=== PATIENT | male | born 1965 | race Caucasian/White ===

== ENCOUNTER → 2018-01-11 08:01 | Outpatient (REF) | payer OTHER, SELFPAY ==
[2018-01-11 12:09] LABS: Abs Immature Grans 0.06 k/cumm (0.0-0.09); HGB 14.8 g/dL (13.5-17.5); Mean Corp. HGB Concentration 35.2 g/dL (32.0-36.0); Mean Corpuscular Hemoglobin 33.3 pg (27.0-33.0); Mean Corpuscular Volume 94.4 fL (80-95); Mean Platelet Volume 9.8 fL (8.0-11.0); Platelet Count 314 x1000/uL (130-400); RBC 4.45 m/cumm (4.50-6.00); RBC Distribution Width 11.7 % (11.8-14.1)
[2018-01-11 12:33] LABS: White Blood Cell Count 28.71 k/cumm (4.4-10.8)
[2018-01-11 12:34] LABS: Absolute Lymphocyte Count 21.25 k/cumm (1.2-3.4); Absolute Monocyte Count 0.86 k/cumm (0.11-0.7); Absolute Neutrophil Count 6.32 k/cumm (1.2-6.7); Atypical Lymphocytes % 0; Diff Comment Manual Differential; RBC Morphology Normal
[2018-01-11 12:46] LABS: ALT 37 U/L (12-78); AST 40 U/L (15-37); Albumin 4.3 g/dL (3.4-5.0); Alkaline Phosphatase 75 U/L (46-116); Anion Gap 11.4 mmol/L (3-11); BUN 12 mg/dL (7-18); Bilirubin, Total 1.2 mg/dL (0.2-1.0); CO2 25.6 mmol/L (21.0-32.0); Calcium 9.1 mg/dL (8.5-10.1); Chloride 94 mmol/L (98-107); Cholesterol 234 mg/dL (50-200); Ferritin 162 ng/mL (8-388); Glucose 85 mg/dL (70-100); HDL Cholesterol 102 mg/dL (40-60); LDL CHOLESTEROL 120 mg/dL (<100); Potassium 4.1 mmol/L (3.5-5.1); Sodium 131 mmol/L (136-145); Total Protein 7.4 g/dL (6.4-8.2); Triglyceride 61 mg/dL (30-150)
[2018-01-11 14:03] LABS: Absolute Eosinophil Count 0.29 k/cumm (0.0-0.7)
[2018-01-14 10:00] LABS: Hepatitis C Ab w Rflx HCV PCR Negative (NEGAT)
[2018-01-14 10:08] LABS: Hepatitis B Surface Ag Negative (NEGAT)
== END ==
LOC: NCHCN 08:01
PROVIDERS: PCP Family Medicine; Visit Provider Family Medicine
DX: Z00.00 Encounter for general adult medical examination without abnormal findings (principal); C91.00 Acute lymphoblastic leukemia not having achieved remission; R74.0 Nonspecific elevation of levels of transaminase and lactic acid dehydrogenase [LDH]; I10 Essential (primary) hypertension; Z13.220 Encounter for screening for lipoid disorders; Z11.59 Encounter for screening for other viral diseases
CPT/HCPCS: 80053; 80061; 83721; 86803; 87340; 82728; 85025

== ENCOUNTER 2018-09-23 10:04 | Day surgery (SDC) | payer OTHER, SELFPAY ==
--- NOTE | 2018-09-23 07:06 | COLE_ITS ---
Date of service: 09/23/18 Time of Service: 10:55 Colonoscopy Report Date of procedure: 09/23/18 Pre-op diagnosis general: Screening Colonoscopy Post-op diagnosis procedure note: other (rectal polyps and mild diverticulosis) Procedure: Colonoscopy with polypectomy with cold forceps Surgeon: Stephanie Longoria Anesthesia proc note operative: other (General/ ASA 2 / Gustavo Ventura, MARTINA) Estimated blood loss (mL): 3 Pathology: other (rectal polyps x2) Complications: None Disposition: same day Indications: Mr. Prabhakar is a pleasant 53 year old male seen in the office for a screening colonoscopy. Risks, benefits and complications have been reviewed. Complications include but are not limited to bleeding, pain, perforation, missed small lesion/polyp, sore throat, aspiration and adverse reaction to the medications. Questions were entertained and answered to their satisfaction and they wished to proceed. No guarantees were given or implied. Prep: Miralax/Dulcolax Procedure Start Time: 10:55 Procedure End Time: 11:28 Retraction Time: 19 minutes Findings: 2 small pedunculated polyps in the rectum Mild diverticulosis of the descending and sigmoid colon Procedure Description: After informed consent was obtained the patient was taken to the procedure room and placed in a left decubitous position. Monitors were applied and a time out was done. The patients name, date of , procedure, allergies to medications and metal in their body was reviewed. The patient was then sedated. Once sedated and comfortable a rectal exam was done. External exam was normal. Internal exam revealed a normal sphincter tone and no palpable m asses. The prostate felt smooth. The scope was then introduced and retro-flexed. No internal hemorrhoids were identified. There were no masses in the rectum. 2 polyps were identified and removed with cold forceps. The scope was then advanced to the cecum without difficulty. The TI and appendiceal orifice were identified. The prep was adequate. The scope was then slowly retracted over 19 minutes back into the rectum. Except for the 2 rectal polyps removed on the way in to the cecum, there were no other polyps identified. There was mild diverticulosis noted of the descending and sigmoid colon. The scope was removed and the patient was woken up and taken back to Same day surgery in stable condition. The patient tolerated the procedure well and there were no immediate complications. Follow up: The patient should follow up in 3-5 years unless they develop changes in bowel habits or other new gastrointestinal complaints.
--- NOTE | 2018-09-23 07:06 | W.PM.DSUDISC ---
Discharge Plan Disposition Patient Disposition: HOME Condition: Good Discharge Details Reason For Visit: Colon Cancer Screening Attending Provider: Stephanie Longoria Primary Care Provider: Pio Harris Home Meds and New Rx's Prescriptions: Continued lisinopril 20 MG tablet 30 mg PO DAILY RF: 0 lisinopril-hydrochlorothiazide 10-12.5 mg Tablet 1 tab PO DAILY RF: 0 Discontinued polyethylene glycol 3350 17 gram/dose powder 238 g PO ONCE Qty: 238 RF: 0 bisacodyl [Dulcolax (bisacodyl)] 5 mg tablet,delayed release (DR/EC) 5 mg PO ONCE Qty: 4 RF: 0 Discharge Instructions Instructions: Colonoscopy (DC), Diverticulosis (DC), Colorectal Polyps (DC) Additional Instructions: Findings: 2 small polyps mild diverticulosis of descending and sigmoid colon Follow up: 3-5 years Please call if you develop: fevers >101.5 Nausea or Vomiting Abdominal pain that is not transient DAY SURGERY UNIT POST COLONOSCOPY INSTRUCTIONS 1. Because there will be medication in your system for the next 24 hours, you may feel a little sleepy. Your coordination will be affected. Therefore: a. Do not drive or operate dangerous equipment for 24 hours. b. Do not drink alcohol beverages for 24 hours (not even beer). c. Plan to go home and rest for the day. 2. Generally there are no restrictions on your activity after a day or so has gone by, but you may feel a bit fatigued for a few days. 3 After you arrive home you may have a light meal and return to a normal diet as you can tolerate it without feeling sick to your stomach. 4. After surgery, you may feel pain or discomfort. This should be only transient, but if it persists please contact your doctor. 5. If there are any questions regarding the findings of your procedure, please feel free to contact your doctor. 6. If you are unable to contact your doctor with a problem, contact the hospital at [phone]. 7. Continue all your regular medications unless directed otherwise. I understand the above instructions and have no questions. Signature of Patient or Responsible Adult Escort Date/Time Name of Responsible Adult Escort Signature of Nurse Date/Time Activity:: Activity as Tolerated Diet:: high fiber diet Discharge Orders Discharge Orders: Discharge Order (Routine); Ordered 09/23/18 Ordered By: Stephanie Longoria DS: Diagnosis Discharge Diagnosis (1) S/P colonoscopy: Status: Acute (2) Diverticulosis large intestine w/o perforation or abscess w/o bleeding: Status: Acute (3) Rectal polyp: Status: Acute
[2018-09-23 10:26] VITALS: BP 144/106; PULSE 69; RESP 16; TEMP 36.5; O2SAT 96
[2018-09-23 10:29] VITALS: BP 144/106; PULSE 69; RESP 16; TEMP 36.5; O2SAT 96
[2018-09-23 10:31] VITALS: BP 144/106; PULSE 69; RESP 16; TEMP 36.5; O2SAT 96
[2018-09-23] MEDS: Lactated Ringers 1,000 ML 80 ML IV (10:40)
--- NOTE | 2018-09-23 10:56 | BOWEL_PTH ---
PATIENT: Gustavo Prabhakar LOC: [facility] U#:[id number] AGE/SX: 53/M ROOM: RE09/23/[address]: Stephanie Longoria MD : 1965 BED: DIS: 09/23/2018 SPEC #: [id number] RECD: 09/23/18 12:48 STATUS: JUWAN REQ #: [id number] GA: 09/23/18 10:[address]: Stephanie Longoria DEPT: Surgical Specimen RECD BY: Mitzi Lopez ENTERED: 09/23/18 12:49 SP TYPE: Bowel OTHR DR: Pio Harris Tissues: 1 - BIOPSY BOWEL Procedures: GROSS AND MICRO LEVEL 4 Comments: [id number]
[2018-09-23 11:53] VITALS: BP 140/99; PULSE 55; RESP 16; TEMP 35.8; O2SAT 99
[2018-09-23 12:09] VITALS: BP 142/103; PULSE 60; RESP 16; O2SAT 100
== END 2018-09-23 12:22 | disposition home or self-care (01) ==
LOC: SUR 10:04
PROVIDERS: PCP Family Medicine; Visit Provider Surgery
PROC: 0DJD8ZZ Inspection of Lower Intestinal Tract, Via Natural or Artificial Opening Endoscopic (ICD-10-PCS; CPT 45378; principal; 2018-09-23 10:15)
DX: Z12.11 Encounter for screening for malignant neoplasm of colon (principal); D12.8 Benign neoplasm of rectum; K57.30 Diverticulosis of large intestine without perforation or abscess without bleeding; I10 Essential (primary) hypertension
CPT/HCPCS: 45380; 88305

== ENCOUNTER 2020-08-11 10:29 | Emergency (ER) | payer OTHER, SELFPAY ==
--- NOTE | 2020-08-11 10:30 | W.ED.GENAD ---
Discharge Plan Disposition Patient Disposition: HOME Condition: Stable Discharge Details Clinical Impression: Laceration of leg Primary Care Provider: Pio Harris ED Provider: Sammy Gallagher Home Meds and New Rx's Prescriptions: Continued lisinopril-hydrochlorothiazide 10-12.5 mg Tablet 1 tab PO DAILY RF: 0 Discharge Instructions Instructions: Laceration (ED) Additional Instructions: Laceration repaired without any difficulty. Keep the area clean and dry, change antibiotic dressing daily. Sutures removed in the next 7-10 days, please return to the ER or follow-up with your primary care provider. At this time you have declined a tetanus booster, please discuss updating your tetanus with your primary care provider. Watch for new or worsening symptoms and return to the ER for any concerns. Medical Decision Making 55-year-old gentleman presents with right lower leg injury that occurred just prior to arrival. There was no hole in his pants, no splintering of the wood, no chance of foreign body. Neuro, vascular, tendon intact. Patient appears well, nontoxic. The patient reports reaction to the influenza vaccine, declines tetanus booster today. Pros and cons of this decision discussed with patient, he is aware, continues to decline, after he received the Covid vaccine in 2 weeks he plans to talk with his primary care provider about getting the tetanus booster. Will not obtain x-ray as extremely low suspicion for foreign body. Laceration repaired without difficulty. Patient has no additional questions or concerns and is comfortable discharge. Antibiotic dressing applied prior to discharge. Medical Records Medical records reviewed: Yes I reviewed the patient's medical records. HPI General Mode of arrival: ambulatory. Date/Time Provider Initiated Documentation: 08/11/20 10:30. Limitations to Documentation: no limitations. Information obtained by: patient. HPI Narrative: This is a 55-year-old gentleman, presenting to to the ER for evaluation of a right lower leg injury. He reports at work, just prior to arrival, he slipped on ice striking his right leg on the corner of a wooden palate. He was wearing pants and there was no tear in his pants. Reports minimal discomfort, slightly worse with movement or walking. Denies any other injury, numbness, tingling, weakness. Patient states an adverse reaction to the flu vaccine in the past, is declining to have his tetanus updated today. He will discuss this with his primary care provider. Patient without any additional questions or concerns. Related Data Home Medications Medication Instructions Recorded Confirmed lisinopril-hydrochlorothiazide 1 tab PO DAILY 09/23/18 08/11/20 Allergies Allergy/AdvReac Type Severity Reaction Status Date / Time Influenza Virus Vaccines Allergy Severe Verified 08/11/20 10:39 Review of Systems Constitutional Constitutional: Denies weakness Musculoskeletal Musculoskeletal: Denies arthralgias, Denies numbness and Denies tingling Integumentary/Breasts Skin/Breast: Denies rash Neurologic Neurologic: Denies numbness, Denies tingling and Denies weakness [facility] Medical History 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 Diverticulosis large intestine w/o perforation or abscess w/o bleeding (~09/23/18) Hypertension Rectal polyp (~09/23/18) Surgical History History of incision and drainage Right forearm/hand S/P colonoscopy (~09/23/18) Social History Smoking/Tobacco Use Status: Former Tobacco Use Quit Date: 06/04/79 Smoking risk assessment performed?: Yes Alcohol Intake: current Alcohol Intake frequency: a few times a week Alcohol type: beer Drug use: Never Do you feel safe at home: Yes Do you feel safe in your relationship?: Yes Additional Social history: alcohol: T-2, three beers Exam Const General: cooperative, healthy appearing, comfortable and no acute distress Orientation: alert and awake [facility] Head: normal to inspection, normocephalic and atraumatic Eyes General: appearance normal, both eyes and all related structures Conjunctivae: conjunctivae normal Sclera: sclerae normal Neck Neck: normal visual inspection, trachea midline and supple Resp Effort & Inspection: normal respiratory effort and able to speak in complete sentences Cardio Rate: regular rate Rhythm: regular rhythm Skin General skin exam: no rashes or lesions noted Neuro General: patient alert, patient awake, moves all extremities and no focal motor deficits Cognition: normal cognition Speech: speech normal Gait: normal gait Motor: muscle tone normal throughout Sensory Exam: no sensory deficits noted Extrem General: full ROM and capillary refill normal Ankle/foot/toe images: 1. There is an irregular 2.5 cm laceration with adjacent abrasion. There is no obvious foreign body. No active bleeding. Neuro, vascular, tendon intact. Full range of motion. Normal capillary refill. Minimal discomfort to palpation. Psych Appearance: grossly normal Mental Status: mental status grossly normal Procedures Laceration Laceration 1: Site: lower extremity Side (If applicable): right Size (cm): 2.5 Description: irregular and clean Depth: simple, single layer Local Anesthetic: Lidocaine 1% and with Epi Amount of anesthesia used (mL): 4 Pre-repair: wound explored, irrigated extensively and deep structures intact Skin layer closed with: nylon Size (cm): 4-0 Number of sutures: 4 Technique: simple, interrupted Other Description: Procedure performed by JUSTINE Curtis under my direct supervision.
[2020-08-11 10:33] VITALS: BP 161/90; PULSE 96; RESP 16; TEMP 36.5; O2SAT 96
[2020-08-11] MEDS: Bacitracin 1 PACKET (11:40)
== END 2020-08-11 11:47 | disposition home or self-care (01) ==
PROVIDERS: Emergency Provider Physician Assistant; PCP Family Medicine
DX: S81.811A Laceration without foreign body, right lower leg, initial encounter (principal); W00.0XXA Fall on same level due to ice and snow, initial encounter; W22.8XXA Striking against or struck by other objects, initial encounter; Y99.0 Civilian activity done for income or pay
CPT/HCPCS: 12001

== ENCOUNTER 2021-04-18 13:24 | Outpatient (REF) | payer OTHER, SELFPAY ==
[2021-04-18 19:43] LABS: Abs Immature Grans 0.08 10^3/uL (0.0-0.06); Basophils % 0.1; Eosinophils % 0.2; HCT 43.5 % (40.0-50.0); HGB 14.7 g/dL (13.5-17.5); Immature Grans % 0.2; Lymphocytes % 83.9; MCHC 33.8 % (32.0-36.0); MCV 94.6 fL (80-95); Monocytes % 1.7; Neutrophils % 13.9; Nucleated RBC 0 %; Platelet Count 335 10^3/uL (130-400); RDW 11.9 % (11.8-14.1); RDW-SD 41.1 fL
[2021-04-18 19:58] LABS: ALT 36 U/L (16-63); AST 30 U/L (15-37); Albumin 4.2 g/dL (3.4-5.0); Alkaline Phosphatase 77 U/L (46-116); Anion Gap 13.3 mmol/L (3-11); BUN 13 mg/dL (7-18); Bilirubin, Total 0.5 mg/dL (0.2-1.0); CO2 25.7 mmol/L (21.0-32.0); Calcium 9.6 mg/dL (8.5-10.1); Chloride 101 mmol/L (98-107); Glucose 105 mg/dL (74-106); Potassium 4.2 mmol/L (3.5-5.1); Sodium 140 mmol/L (136-145); Total Protein 7.5 g/dL (6.4-8.2)
[2021-04-18 19:59] LABS: Absolute Basophil Count 0.04 10^3/uL (0.0-0.2); Absolute Eosinophil Count 0.08 10^3/uL (0.0-0.7); Absolute Lymphocyte Count 33.95 10^3/uL (1.2-3.4); Absolute Monocyte Count 0.69 10^3/uL (0.1-0.8); Absolute Neutrophil Count 5.63 10^3/uL (1.2-6.7)
[2021-04-18 20:01] LABS: WBC 40.47 10^3/uL (4.4-10.8)
[2021-04-18 20:02] LABS: Diff Comment Agrees w/ Instrument; RBC Morphology Normal
== END 2021-04-18 13:25 | disposition home or self-care (01) ==
LOC: NCHCN 13:24
PROVIDERS: PCP Family Medicine; Visit Provider Family Medicine
DX: I10 Essential (primary) hypertension (principal); R74.01 Elevation of levels of liver transaminase levels; C91.00 Acute lymphoblastic leukemia not having achieved remission
CPT/HCPCS: 80053; 85025

== ENCOUNTER → 2021-09-07 00:38 | Outpatient (CLI) | payer OTHER, SELFPAY ==
--- NOTE | 2021-09-07 | DI.CT_ITS ---
Exam(s) CT NECK CHEST ABD PEL W EXAM: CT NECK CHEST ABD PEL W CLINICAL HISTORY: CLL, C91.10, INITIAL STAGING. TECHNIQUE: Imaging Protocol: Axial computed tomography images with coronal and sagittal reformatted images were created and reviewed CONTRAST MATERIAL: Intravenous: Omnipaque 350 Contrast volume:100 ml Oral: Yes COMPARISON: CR CHEST 2 VIEWS PA,LAT from 05/13/2015 FINDINGS: CT NECK WITH IV CONTRAST: Images are somewhat degraded by motion artifact. NASOPHARYNX: Unremarkable OROPHARYNX: Unremarkable RETROPHARYNGEAL SPACE: Unremarkable HYPOPHARYNX: Unremarkable LARYNX AND SUBGLOTTIC AIRWAY: Aryepiglottic folds and vocal cords appear unremarkable as does the ant erior commissure. Subglottic airway appears unremarkable. THYROID GLAND: Unremarkable. SALIVARY GLANDS: Parotid and submandibular glands appear unremarkable LYMPH NODES: No lymphadenopathy evident in the neck and supraclavicular regions. VASCULAR: No significant tight stenosis at the carotid bifurcations and proximal internal carotid art eries. OSSEOUS: Mandible unremarkable. VISUALIZED PARANASAL SINUSES: Mild mucosal thickening maxillary sinuses. No fluid levels CHEST: LUNGS: Mild benign-appearing subpleural increased markings noted in right middle lobe. No ominous pu lmonary nodules nor pleural effusions. There are no significant focal findings in the trachea and ma instem bronchi. MEDIASTINUM: There is no hilar nor mediastinal adenopathy. Visualized thyroid unremarkable. CARDIAC: Heart size is normal. There is no pericardial effusion.Caliber of the thoracic aorta is wit hin normal limits. OSSEOUS: No significant osseous lesions.. ABDOMEN: There is no ascites. LIVER: There are no focal hepatic lesions nor dilatation of intrahepatic ducts. GALLBLADDER/BILIARY: Subtle cholelithiasis with layering dense sludge or milk calcium the gallbladder neck region. The gallbladder does not appear edematous. There is no pericholecystic fluid. CBD is not dilated and does not contain similar hyperdense material. PANCREAS: No evidence of pancreatic mass nor dilatation of the pancreatic duct. SPLEEN: Spleen is not enlarged. There are no intrasplenic lesions. Splenic and portal veins are harris nt. ADRENALS: There are no significant adrenal masses. KIDNEYS: No calculi nor hydronephrosis. No solid renal masses. No cysts evident. ABDOMINAL AORTA: Abdominal aorta is not enlarged. LYMPH NODES: There is no retroperitoneal nor paraaortic adenopathy. ABDOMINAL WALL: No evidence of significant anterior abdominal wall nor inguinal hernia. GI: There is no evidence of bowel obstruction. PELVIS: LYMPH NODES: There is no intrapelvic nor inguinal adenopathy. GI: No evidence of appendicitis.No evidence of sigmoid diverticulitis. URINARY BLADDER: No calculi nor masses evident REPRODUCTIVE: Prostate and seminal vesicles appear unremarkable. OSSEOUS: No significant osseous lesions. IMPRESSION: 1. No significant intrathoracic findings. No lymphadenopathy. No pleural effusions. 2. Subtle cholelithiasis or milk of calcium in the gallbladder neck region. No evidence of acute cho lecystitis nor dilatation of the CBD. 3. No osseous lesions evident. 4. No masses evident in the neck. RADIATION DOSE DELIVERED: 1538 mGy.cm Total DLP DATA REPOSITORY: All CT scans at this facility are submitted to the National Radiology Data Registry (NRDR) Dose Index Registry (DIR) with the [employer] (ACR). RADIATION OPTIMIZATION: All CT scans at this facility use at least one of these dose optimization te chniques: automated exposure control; mA and/or kV adjustment per patient size (includes targeted exa ms where dose is matched to clinical indication); or iterative reconstruction.
[2021-09-07 09:01] LABS: ALT 39 U/L (16-63); AST 31 U/L (15-37); Albumin 3.6 g/dL (3.4-5.0); Alkaline Phosphatase 64 U/L (46-116); Anion Gap 7.5 mmol/L (3-11); BUN 13 mg/dL (7-18); Bilirubin, Total 0.5 mg/dL (0.2-1.0); CO2 29.5 mmol/L (21.0-32.0); CREATININE 0.8 mg/dL (0.70-1.30); Calcium 8.8 mg/dL (8.5-10.1); Chloride 102 mmol/L (98-107); Glucose 86 mg/dL (74-106); Potassium 4.2 mmol/L (3.5-5.1); Sodium 139 mmol/L (136-145); Total Protein 7.6 g/dL (6.4-8.2)
[2021-09-07] MEDS: Omnipaque 350 MG/ML 100 ML BTL 140 ML IJ (11:11)
== END ==
PROVIDERS: PCP Family Medicine; Visit Provider Internal Medicine Hematology & Oncology
DX: C91.10 Chronic lymphocytic leukemia of B-cell type not having achieved remission (principal); R91.8 Other nonspecific abnormal finding of lung field; K80.20 Calculus of gallbladder without cholecystitis without obstruction; Z12.89 Encounter for screening for malignant neoplasm of other sites
CPT/HCPCS: 70491; 74177; 80053; 71260; J3490

== ENCOUNTER 2022-01-04 03:16 | Outpatient (CLI) | payer OTHER, SELFPAY ==
[2022-01-04 08:38] LABS: Abs Immature Grans 0.04 10^3/uL (0.0-0.06); HCT 41.7 % (40.0-50.0); HGB 14.1 g/dL (13.5-17.5); MCH 32.7 pg (27.0-33.0); MCHC 33.8 % (32.0-36.0); MCV 97 fL (80-95); MPV 8.9 fL (8.0-11.0); Platelet Count 291 10^3/uL (130-400); RBC 4.31 10^6/uL (4.36-5.78); RDW 11.6 % (11.8-14.1); RDW-SD 41.1 fL
[2022-01-04 09:31] LABS: Absolute Neutrophil Count 3.76 10^3/uL (1.2-6.7); WBC 34.21 10^3/uL (4.4-10.8)
[2022-01-04 09:32] LABS: Absolute Lymphocyte Count 28.74 10^3/uL (1.2-3.4); Absolute Monocyte Count 1.71 10^3/uL (0.1-0.8); Atypical Lymphocytes % 2; Diff Comment Manual Differential; RBC Morphology Normal
== END 2022-01-04 03:17 | disposition home or self-care (01) ==
LOC: LBO 03:16
PROVIDERS: PCP Family Medicine; Visit Provider Internal Medicine Hematology & Oncology
DX: C91.10 Chronic lymphocytic leukemia of B-cell type not having achieved remission (principal)
CPT/HCPCS: 36415; 85025

== ENCOUNTER 2022-04-17 17:40 | Outpatient (REF) | payer OTHER, SELFPAY ==
[2022-04-17 17:18] LABS: BUN 9 mg/dL (7-18); CREATININE 0.8 mg/dL (0.70-1.30); Calcium 8.9 mg/dL (8.5-10.1); Glucose 93 mg/dL (74-106)
[2022-04-17 17:19] LABS: Anion Gap 8.1 mmol/L (3-11); CO2 24.9 mmol/L (21.0-32.0); Calculated LDL 121 mg/dL (<100); Chloride 96 mmol/L (98-107); Cholesterol 225 mg/dL (<200); Estimated GFR 103.22 (mL/min/1.73m2); HDL Cholesterol 83 mg/dL (40-60); Sodium 129 mmol/L (136-145); Triglyceride 105 mg/dL (<150)
[2022-04-17 17:21] LABS: Hemoglobin A1C 5.3 % (<5.7)
== END 2022-04-17 17:41 | disposition home or self-care (01) ==
LOC: NCHCN 17:40
PROVIDERS: PCP Family Medicine; Visit Provider Family Medicine
DX: Z00.00 Encounter for general adult medical examination without abnormal findings (principal); Z13.220 Encounter for screening for lipoid disorders; Z13.1 Encounter for screening for diabetes mellitus; I10 Essential (primary) hypertension
CPT/HCPCS: 80048; 80061; 83036

== ENCOUNTER 2022-05-24 09:38 | Outpatient (REF) | payer OTHER, SELFPAY ==
[2022-05-24 15:14] LABS: Abs Immature Grans 0.05 10^3/uL (0.0-0.06); Basophils % 0.4; Eosinophils % 0.2; HCT 43.2 % (40.0-50.0); HGB 14.5 g/dL (13.5-17.5); Immature Grans % 0.1; Lymphocytes % 86.8; MCH 32.6 pg (27.0-33.0); MCHC 33.6 % (32.0-36.0); MCV 97 fL (80-95); MPV 9.9 fL (8.0-11.0); Monocytes % 2.2; Neutrophils % 10.3; Platelet Count 293 10^3/uL (130-400); RBC 4.45 10^6/uL (4.36-5.78); RDW 11.9 % (11.8-14.1); RDW-SD 42.8 fL
[2022-05-24 15:21] LABS: Absolute Basophil Count 0.14 10^3/uL (0.0-0.2); Absolute Eosinophil Count 0.07 10^3/uL (0.0-0.7); Absolute Lymphocyte Count 31.37 10^3/uL (1.2-3.4); Absolute Neutrophil Count 3.72 10^3/uL (1.2-6.7); WBC 36.14 10^3/uL (4.4-10.8)
[2022-05-24 15:38] LABS: Diff Comment Agrees w/ Instrument; RBC Morphology Normal
[2022-05-24 16:25] LABS: Anion Gap 9.2 mmol/L (3-11); BUN 14 mg/dL (7-18); CO2 27.8 mmol/L (21.0-32.0); CREATININE 0.9 mg/dL (0.70-1.30); Calcium 9.5 mg/dL (8.5-10.1); Chloride 99 mmol/L (98-107); Estimated GFR 99.62 (mL/min/1.73m2); Glucose 95 mg/dL (74-106); Potassium 4.3 mmol/L (3.5-5.1); Sodium 136 mmol/L (136-145)
== END 2022-05-24 09:39 | disposition home or self-care (01) ==
LOC: NCHCN 09:38
PROVIDERS: PCP Family Medicine; Visit Provider Family Medicine
DX: Z00.00 Encounter for general adult medical examination without abnormal findings (principal); C91.00 Acute lymphoblastic leukemia not having achieved remission; E87.1 Hypo-osmolality and hyponatremia
CPT/HCPCS: 80048; 85025

== ENCOUNTER 2022-11-28 02:00 | Outpatient (CLI) | payer OTHER, SELFPAY ==
[2022-11-28 12:34] LABS: HCT 42.5 % (40.0-50.0); HGB 14.4 g/dL (13.5-17.5); MCH 32.3 pg (27.0-33.0); MCHC 33.9 % (32.0-36.0); MCV 95 fL (80-95); MPV 9.2 fL (8.0-11.0); Platelet Count 263 10^3/uL (130-400); RBC 4.46 10^6/uL (4.36-5.78); RDW 11.8 % (11.8-14.1)
[2022-11-28 14:29] LABS: Absolute Lymphocyte Count 36.37 10^3/uL (1.2-3.4); Absolute Monocyte Count 1.25 10^3/uL (0.1-0.8); Absolute Neutrophil Count 4.18 10^3/uL (1.2-6.7); Diff Comment Manual Differential; RBC Morphology Normal
[2022-11-28 14:32] LABS: WBC 41.81 10^3/uL (4.4-10.8)
[2022-11-28 15:27] LABS: ALT 47 U/L (16-63); AST 47 U/L (15-37); Albumin 3.5 g/dL (3.4-5.0); Alkaline Phosphatase 75 U/L (46-116); Anion Gap 10.6 mmol/L (3-11); BUN 19 mg/dL (7-18); Bilirubin, Total 0.9 mg/dL (0.2-1.0); CO2 24.4 mmol/L (21.0-32.0); CREATININE 0.9 mg/dL (0.70-1.30); Calcium 8.8 mg/dL (8.5-10.1); Chloride 104 mmol/L (98-107); Estimated GFR 99.62 (mL/min/1.73m2); Glucose 127 mg/dL (74-106); LDH 193 U/L (85-227); Sodium 139 mmol/L (136-145); Total Protein 7.5 g/dL (6.4-8.2)
[2022-11-29 10:08] LABS: IgA 359 mg/dL (85-499); IgG 955 mg/dL (610-1616); IgM 37 mg/dL (35-242)
== END 2022-11-28 02:01 | disposition home or self-care (01) ==
PROVIDERS: PCP Family Medicine; Visit Provider Internal Medicine Hematology & Oncology
DX: C91.10 Chronic lymphocytic leukemia of B-cell type not having achieved remission (principal)
CPT/HCPCS: 36415; 80053; 82784; 83615; 85025

== ENCOUNTER 2023-11-19 09:01 | Day surgery (SDC) | payer OTHER, SELFPAY ==
--- NOTE | 2023-11-18 18:32 | W.PM.DSUDISC ---
Date of service: 11/19/23 Time of Service: 11:04 Discharge Plan Disposition Patient Disposition: Home Condition: Good Discharge Details Reason For Visit: screening colonoscopy Attending Provider: Roque Jerez Primary Care Provider: Pio Harris Home Meds and New Rx's Prescriptions: Continued amlodipine-benazepril 5-40 mg capsule 1 cap PO DAILY Discontinued bisacodyl [Dulcolax (bisacodyl)] 5 mg tablet,delayed release (DR/EC) 5 mg PO ONCE Qty: 4 0RF Rx Instructions: Take per colonoscopy instructions provided by ordering providers office polyethylene glycol 3350 17 gram/dose powder 17 g PO ONCE Qty: 238 0RF Rx Instructions: Take per colonoscopy instructions provided by ordering providers office Discharge Instructions Additional Instructions: Gustavo, we are able to complete your colonoscopy today without any issues. I did not see any signs of polyps this time. Based on the type of polyps that you had removed previously, I do recommend another 5-year interval for your next screening. If that 1 is negative, we could give stronger consideration to spacing them out 1. If tolerated, consume a soft, low fiber diet for 1-2 days. 2[address] Do not drive, drink alcohol, operate machinery, make critical decisions, or do activities that require coordination or balance for 24 hours. 3. Because air was put into your colon during the procedure, expelling air from your rectum (passing gas or farting) is normal. 4. You may not have a bowel movement for 1-3 days because of the colonoscopy prep. This is normal. 5. Go directly to the emergency room if you notice any of the following: Develop chills (warm to touch), or if you have a thermometer and your temperature is above 101 Difficulty breathing or difficultly swallowing Persistent vomiting Severe abdominal pain, other than gas cramps Severe chest pain Black, tarry stools Any bleeding ? exceeding one tablespoon 6. Call your physician if the site where your intravenous was started becomes red, swollen, painful, and warm to touch. 7. Your physician has reviewed your pre-procedure medications. Please continue to take those medications as previously ordered. You will be given specific information/education regarding any changes to your medications before leaving. Activity:: Activity as Tolerated Diet:: As Tolerated Discharge Orders Discharge Orders: Discharge Order (Routine); Ordered 11/18/23 Ordered By: Roque Jerez DS: Diagnosis Discharge Diagnosis (1) Encounter for screening colonoscopy: Status: Acute Asessment and Plan: Negative screening colonoscopy; based on previous adenoma, recommend 5-year follow-up for the next colonoscopy.
--- NOTE | 2023-11-18 18:34 | W.COLOREPORT ---
Date of service: 11/19/23 Time of Service: 11:05 Colonoscopy Report Date of procedure: 11/19/23 Pre-op diagnosis general: screening colonoscopy Post-op diagnosis procedure note: other (Negative screening colonoscopy) Procedure: colonoscopy Surgeon: Roque Jerez Anesthesia Type: General:No Airway Estimated blood loss (mL): 0 Pathology: none sent Complications: None Disposition: same day Indications: Gustavo is a 58 year old man with a history of adenomatous polyps who needs a screening colonoscopy Prep: Miralax/Dulcolax Procedure Start Time: 10:33 Procedure End Time: 10:56 Retraction Time: 10 Findings: Negative screening colonoscopy Procedure Description: After the induction of anesthesia, and with the patient in left lateral decubitus position, I began by performing an external anorectal exam.? Perineum and skin were normal, as was the anal verge.? There was no evidence of external hemorrhoids.? Next, I performed a digital rectal exam.? I did not appreciate any abnormal findings.? Next, I advanced a colonoscope into the rectal vault.? I performed retroflexion.? This appeared normal.? Using insufflation, I then advanced the colonoscope beyond the rectal folds and into the sigmoid colon before advancing towards the cecum.? The scope was noted to be in the cecum by identification of the ileocecal valve and appendiceal orifice.? I then began withdrawing the colonoscope using repeated irrigation as necessary for full evaluation of the colonic mucosa. ?Once the scope was withdrawn to the level of the rectum, great care was taken to examine portions of the rectal folds.? I did not see any signs of tumors, polyps, or any other worrisome pathology. Finally, the scope was withdrawn and the patient was brought to the same-day surgery recovery unit as the anesthetic wore off. ?The findings and instructions were shared with the patient prior to discharge. [facility] Bowel Prep [facility] Bowel Prep Right Colon: 2 Left Colon: 3 Transverse Colon: 3 Total Score: 8
[2023-11-19 09:30] VITALS: BP 135/91; PULSE 70; RESP 16; TEMP 36.5; O2SAT 98
[2023-11-19] MEDS: Lactated Ringers 1,000 ML 80 ML IV (09:41)
--- NOTE | 2023-11-19 10:27 | ANES.PREOP_ITS ---
General Info Date of Service Date Performed: 11/19/23 Height: 5 ft 10 in Weight: 81.3 kg Body Mass Index (BMI): 25.7 Surgical Procedure: Operation Date: 11/19/23 11:05 Proposed Procedure Side Surgeon p Colonoscopy Roque Jerez MD Meds Allergies and Home Medications Allergies Allergy/AdvReac Type Severity Reaction Status Date / Time Influenza Virus Vaccines Allergy Severe as stated Verified 11/19/23 09:27 prednisone Allergy Severe severe Verified 11/19/23 09:27 infection following treatment Home Medication Medication Instructions Recorded amlodipine 5 mg-benazepril 40 mg 1 cap PO DAILY 09/04/23 capsule Current Visit Medications: Current Medications Generic Name Dose Route Start Last Admin Trade Name Freq PRN Reason Stop Dose Admin Hyoscyamine Sulfate 0.125 mg 11/18/23 18:37 Hyoscyamine 0.125 Mg Sl/Oral/Chew SL 12/18/23 18:36 ONCE PRN Ringer's Solution 1,000 mls @ 80 mls/hr 11/19/23 06:00 11/19/23 09:41 IV 12/16/23 23:59 80 mls/hr INFUSION JEFFY Administration IV Miscellaneous Supplies 1 each 11/19/23 06:00 Iv Access IV 12/16/23 23:59 DIRECTED JEFFY Ondansetron HCl 4 mg 11/18/23 18:37 Ondansetron 4 Mg/2 Ml Vial IVP 12/18/23 18:36 Q4H PRN PRN Nausea / Vomiting Sodium Chloride 0 ml 11/19/23 06:00 Normal Saline Flush 10 Ml Syr IV 12/16/23 23:59 PRN PRN Sodium Chloride 0 ml 11/19/23 06:00 Normal Saline 10 Ml Vial IJ 12/16/23 23:59 DIRECTED PRN Sterile Water 0 ml 11/19/23 06:00 Water,Injection,Sterile 10 Ml Vial IJ 12/16/23 23:59 DIRECTED PRN PFSH Active Problems Active Problems: Problem Status Onset Code Laceration of leg S81.819A Rectal polyp ~09/23/18 K62.1 Diverticulosis large intestine w/o perforation or abscess w/o bleeding ~09/23/18 K57.30 S/P colonoscopy ~09/23/18 Z98.890 Encounter for screening colonoscopy Z12.11 Compartment syndrome of right hand T79.A11A Rash of entire body R21 CLL (chronic lymphocytic leukemia) C91.10 Cellulitis of right hand L03.113 Medical History Medical History History of necrotizing fasciitis 2015-hand Hypertension 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 Surgical History Surgical History History of vasectomy (~2007) History of incision and drainage Right forearm/hand Tobacco Smoking/Tobacco Use Status: Former Tobacco Use Alcohol Alcohol Intake: current Alcohol intake frequency: a few times a week Alcohol type: beer Substance Use Substance use: Never Substance use type: does not use Vital Signs and Lab Results Vital Signs Most Recent Vital Signs in EMR: Most Recent Vital Signs Temp Pulse Resp BP Pulse Ox 36.5 C 70 16 135/91 H 98 11/19/23 09:30 11/19/23 09:30 11/19/23 09:30 11/19/23 09:30 11/19/23 09:30 Lab Results Blood Type / Crossmatch: 2 No Data to Display Complete Blood Count: No Data to Display Complete Metabolic Panel: No Data to Display Liver Function Panel: No Data to Display Coagulation Panel: No Data to Display Cardiac Panel: No Data to Display Arterial Blood Gas: No Data to Display Venous Blood Gas: No Data to Display Pancreas Panel: No Data to Display Thyroid Panel: No Data to Display Infectious Disease: No Data to Display Blood Cultures: No Data to Display Toxicology Panel: No Data to Display Anesthesia Assessment and Plan Anesthesia History Personal History: No History of Anesthesia Complications Family History: No Family History of Anesthesia Complications Exercise Tolerance Exercise Tolerance: Metabolic Equivalents>4 Pertinent Negatives Pertinent Negatives: No Symptoms of GERD Cardiac & Pulmonary Exam Cardiac Exam: Normal S1/S2 Heart Sounds Pulmonary Exam: Clear Bilateral Breath Sounds Implantable Cardiac Device Does patient have a Pacemaker or an ICD?: No Airway Exam Known Difficult Airway: No Mallampati Class: 2 Mouth Opening: Normal (> 3cm) Thyromental Distance: Greater than 3 cm Neck Range of Motion: Full ROM Neck Circumference: Normal Teeth Condition: Normal Dentition ASA Classification ASA Score: ASA 2 Emergency Case?: No NPO Status NPO Status: NPO Clears >2 hours, Solids >8 hours Anesthesia Plan Resuscitation Status: Full Code Anesthesia Technique: General Anesthesia Airway Planned: Natural Airway Monitors Used: Standard Monitors
[2023-11-19 10:28] VITALS: BMI 25.7
[2023-11-19 11:04] VITALS: BP 98/87; PULSE 67; RESP 16; TEMP 36.8; O2SAT 96
--- NOTE | 2023-11-19 11:10 | W.ANESPOSTOP ---
Postoperative Evaluation Date, Time and Location Date Performed: 11/19/23 Time Performed: 11:10 Patient Location: Day Surgery Unit Vital Signs Most Recent Imported Vital Signs: Most Recent Vital Signs Temp Pulse Resp BP Pulse Ox 36.5 C 70 16 135/91 H 98 11/19/23 09:30 11/19/23 09:30 11/19/23 09:30 11/19/23 09:30 11/19/23 09:30 Pain Score Most Recent Pain Score: Most Recent Pain Score Pain Level 0 11/19/23 09:30 Assessment Mental Status: Awake (Alert & Oriented to Patient Baseline) Airway and Respiratory Function: Patent airway with normal (patient baseline) respiratory exam Cardiovascular Function: Hemodynamically Stable Hydration Status: Adequately Hydrated Nausea & Vomiting: No Nausea or Vomiting Pain: Pt. Denies Any Pain Peripheral Nerve Block: Patient did not receive a nerve block
[2023-11-19 11:28] VITALS: BP 130/82; PULSE 61; RESP 16; TEMP 36; O2SAT 97
== END 2023-11-19 11:42 | disposition home or self-care (01) ==
LOC: SUR 09:02
PROVIDERS: PCP Family Medicine; Visit Provider Surgery
PROC: 0DJD8ZZ Inspection of Lower Intestinal Tract, Via Natural or Artificial Opening Endoscopic (ICD-10-PCS; CPT 45378; principal; 2023-11-19 11:00)
DX: Z12.11 Encounter for screening for malignant neoplasm of colon (principal)
CPT/HCPCS: 45378; J2001; J2704

== ENCOUNTER 2023-11-28 01:55 | Outpatient (CLI) | payer OTHER, SELFPAY ==
[2023-11-28 10:21] LABS: Abs Immature Grans 0.06 10^3/uL (0.0-0.06); Absolute Monocyte Count 0.64 10^3/uL (0.1-0.8); Basophils % 0.2 %; Eosinophils % 0.4 %; HCT 41.4 % (40.0-50.0); Immature Grans % 0.2 %; Lymphocytes % 85.7 %; MCH 33.2 pg (27.0-33.0); MCHC 33.8 % (32.0-36.0); MCV 98 fL (80-95); MPV 8.8 fL (8.0-11.0); Monocytes % 1.8 %; Neutrophils % 11.7 %; Platelet Count 327 10^3/uL (130-400); RBC 4.22 10^6/uL (4.36-5.78); RDW 11.9 % (11.8-14.1); RDW-SD 43.3 fL
[2023-11-28 10:28] LABS: Absolute Basophil Count 0.07 10^3/uL (0.0-0.2); Absolute Eosinophil Count 0.14 10^3/uL (0.0-0.7); Absolute Neutrophil Count 4.18 10^3/uL (1.2-6.7); WBC 35.71 10^3/uL (4.4-10.8)
[2023-11-28 10:40] LABS: Diff Comment Agrees w/ Instrument
[2023-11-28 10:41] LABS: RBC Morphology Normal
[2023-11-28 14:06] LABS: ALT 31 U/L (16-63); AST 25 U/L (15-37); Albumin 3.6 g/dL (3.4-5.0); Alkaline Phosphatase 83 U/L (46-116); Anion Gap 10.1 mmol/L (3-11); BUN 13 mg/dL (7-18); Bilirubin, Total 0.35 mg/dL (0.2-1.0); CO2 26.9 mmol/L (21.0-32.0); CREATININE 0.9 mg/dL (0.70-1.30); Calcium 8.7 mg/dL (8.5-10.1); Chloride 102 mmol/L (98-107); Glucose 103 mg/dL (74-106); LDH 165 U/L (85-227); Potassium 4.4 mmol/L (3.5-5.1); Sodium 139 mmol/L (136-145); Total Protein 7.4 g/dL (6.4-8.2)
== END 2023-11-28 01:56 | disposition home or self-care (01) ==
LOC: LBO 01:55
PROVIDERS: PCP Family Medicine; Visit Provider Internal Medicine Hematology & Oncology
DX: C91.10 Chronic lymphocytic leukemia of B-cell type not having achieved remission (principal)
CPT/HCPCS: 36415; 80053; 83615; 85025